=== PATIENT | male | born 2000 | race Hispanic/Latino ===

== ENCOUNTER 2018-02-17 08:02 | Emergency (ER) | payer SELFPAY ==
[~2018-02-17] VITALS: Ht 177.8 cm; Wt 65.8 kg
--- NOTE | 2018-02-17 09:27 | Diagnostic Imaging Report ---
PROCEDURE: X-RAY CHEST, TWO VIEWS COMPARISON: None. INDICATIONS: COUGHING UP BLOOD FINDINGS: LUNGS: No consolidations or edema. PLEURA: No effusions or pneumothorax. HEART \T\ MEDIASTINUM: The heart is within normal size-limits. BONES \T\ SOFT TISSUES: No acute findings. CONCLUSION: No acute thoracic abnormality. Ramirez Zamora D.O. Dictated by: Ramirez Zamora D.O. on 02/17/2018 at 9:30 Electronically approved by: Ramirez Zamora D.O. on 02/17/2018 at 9:30
[2018-02-17 09:50] VITALS: BP 125/87
== END 2018-02-17 10:08 | disposition home or self-care (01) ==
LOC: ER 08:02
DX: J20.8 Acute bronchitis due to other specified organisms (principal); F41.9 Anxiety disorder, unspecified; F43.10 Post-traumatic stress disorder, unspecified
CPT/HCPCS: 71046; 99282